=== PATIENT | male | born 1950 | race Caucasian/White ===

== ENCOUNTER 2023-07-17 11:44 | Outpatient (CLI) | payer MEDICARE, SELFPAY ==
[2023-07-20 18:07] LABS: Lamotrigine (Lamictal) 2.8 ug/mL (2.0-20.0)
== END 2023-07-17 23:59 ==
PROVIDERS: PCP Internal Medicine; Visit Provider Specialist
DX: R55 Syncope and collapse (principal); R56.9 Unspecified convulsions
CPT/HCPCS: 36415; 80168; 93225; 93270